=== PATIENT | female | born 1995 | race Caucasian/White ===

== ENCOUNTER 2017-03-09 23:28 | Emergency (ER) | payer SELFPAY ==
[~2017-03-09] VITALS: Ht 154.9 cm; Wt 45.0 kg
[2017-03-09 23:29] VITALS: BP 118/65; PULSE 88; TEMP 98.5
== END 2017-03-10 00:21 | disposition home or self-care (01) ==
LOC: COL.ER 23:28
DX: T24.111A Burn of first degree of right thigh, initial encounter (principal); T31.0 Burns involving less than 10% of body surface; Y92.009 Unspecified place in unspecified non-institutional (private) residence as the place of occurrence of the external cause; X12.XXXA Contact with other hot fluids, initial encounter